=== PATIENT | male | born 1995 | race Hispanic/Latino ===

== ENCOUNTER 2022-08-10 13:15 | Emergency (ER) | payer OTHER, SELFPAY ==
[2022-08-10 13:45] VITALS: BP 122/76; PULSE 68; RESP 18; TEMP 36.7; O2SAT 100
--- NOTE | 2022-08-10 16:19 | ED.GENADULT ---
HPI - General Adult General Chief complaint: Back Pain/Injury Stated complaint: nack pain Time Seen by Provider: 08/10/22 15:45 History of Present Illness HPI narrative: 27-year-old male presented to the emergency department for evaluation of lower back pain. Patient states a few days ago he did do some heavy lifting but denies any other specific injury. Patient reports over the last day or so he has had increasing lower back pain. Patient has been taking Tylenol for pain control. Patient denies any associated numbness or weakness. Patient denies any pain radiating down his leg. Patient denies any difficulty starting urination or incontinence to stool. Patient has no prior history of lower back surgery. Pull Worker iPad was used during patient exam Related Data Allergies Allergy/AdvReac Type Severity Reaction Status Date / Time No Known Allergies Allergy Verified 08/10/22 13:26 Review of Systems Review of Systems: CONSTITUTIONAL: Denies fever, chills, or sweats. EYES: Denies visual changes, redness, or discharge. ENT: Denies rhinorrhea, congestion, sore throat, or otalgia. CARDIOVASCULAR: Denies chest pain, palpitations, or edema. RESPIRATORY: Denies cough or dyspnea. GASTROINTESTINAL: Denies abdominal pain, nausea, vomiting, or diarrhea. GENITOURINARY: Denies dysuria or hematuria. SKIN: Denies rash or itching. MUSCULOSKELETAL: See HPI NEUROLOGIC: Denies headache, numbness, or weakness. Exam Narrative: APPEARANCE: Well appearing, no pain, no distress, well-nourished. HEAD: normocephalic, atraumatic. EYES: PERRLA/EOMI, conjunctivae clear. NOSE: Normal no drainage NECK: Supple. No adenopathy, no masses. RESPIRATORY: Airway patent, respirations nonlabored. Clear to auscultation bilaterally, no rales, rhonchi, wheezing. CARDIOVASCULAR: Regular rate and rhythm without murmurs rubs or gallops. ABDOMINAL: Soft, nontender, nondistended, normal bowel sounds MUSCULOSKELETAL: Paraspinal muscle tenderness to palpation of the paraspinal nerves NEURO: Alert. Cranial nerves II through XII intact. Grossly intact SKIN: Warm, dry. Normal Color Course Course Emergency Course: Patient is neurologically intact. Patient denies any specific falls or injuries. Low concern for a skeletal injury so x-rays were not ordered. Patient was comfortable with the plan for treating this as muscular back pain. Patient was treated with Toradol and Flexeril in the emergency department. Patient was educated on treatment for home. Translating iPad was used and all questions concerns were addressed. Vital Signs Vital signs: Vital Signs Temperature 98.0 F 08/10/22 13:45 Pulse Rate 68 08/10/22 13:45 Respiratory Rate 18 08/10/22 13:45 Blood Pressure 122/76 08/10/22 13:45 Pulse Oximetry 100 08/10/22 13:45 Temperature 98.0 F 08/10/22 13:45 Pulse Rate 68 08/10/22 13:45 Respiratory Rate 18 08/10/22 13:45 Blood Pressure 122/76 08/10/22 13:45 Pulse Oximetry 100 08/10/22 13:45 Medical Decision Making Vital Signs Vital Signs: Vital Signs Temperature 98.0 F 08/10/22 13:45 Pulse Rate 68 08/10/22 13:45 Respiratory Rate 18 08/10/22 13:45 Blood Pressure 122/76 08/10/22 13:45 Pulse Oximetry 100 08/10/22 13:45 Temperature 98.0 F 08/10/22 13:45 Pulse Rate 68 08/10/22 13:45 Respiratory Rate 18 08/10/22 13:45 Blood Pressure 122/76 08/10/22 13:45 Pulse Oximetry 100 08/10/22 13:45 Discharge Plan Discharge Clinical Impression: Strain of lumbar region Patient Disposition: Home, Self-Care Condition: Stable Instructions: Antibiotic Form, Acute Low Back Pain (ED) Additional Instructions: Tylenol and ibuprofen for pain control. Flexeril as needed for muscle spasm. Lower back stretches as directed. Have close follow-up with your primary care physician. Prescriptions: New cyclobenzaprine 10 mg tablet 10 mg PO BID PRN (Reason: muscle spasm) Qty: 14 0RF Fol
[2022-08-10] MEDS: CYCLOBENZAPRINE HCL 10 MG TABLET PO (16:40)
[2022-08-10] MEDS: KETOROLAC 30 MG/ML VIAL (*BKC) IM (16:40)
== END 2022-08-10 17:16 | disposition home or self-care (01) ==
LOC: ANHED 16:46
PROVIDERS: Emergency Provider Emergency Medicine
DX: S39.012A Strain of muscle, fascia and tendon of lower back, initial encounter (principal); X58.XXXA Exposure to other specified factors, initial encounter
CPT/HCPCS: 96372; 99283; A9270; J1885